=== PATIENT | male | born 1990 | race Caucasian/White ===

== ENCOUNTER → 2018-01-16 | Day surgery (SDC) | payer BC, MEDICAID ==
[2018-01-15 10:46] VITALS: BMI 40.1
[~2018-01-16] MED LIST: Fentanyl 100 MCG/2 ML VIAL ONE; Midazolam HCl 2 mg/2 ml Vial ONE
--- NOTE | 2018-01-16 13:27 | MRI ---
MRI OF THE LUMBAR SPINE WITHOUT CONTRAST: DATE: 01/16/18. COMPARISON: None. HISTORY: Back pain with paresthesias of bilateral lower extremities, pain. TECHNIQUE: Multiplanar, multisequence MR imaging of the lumbar spine obtained without contrast. FINDINGS: The sagittal STIR imaging demonstrates no focal area of osseous marrow edema. Assuming 5 lumbar-type vertebral bodies, the conus medullaris terminates at the T12-L1 level. There is no significant anterolisthesis or retrolisthesis noted within the lumbar spine. T12-L1: Intervertebral disk height and signal intensity is within normal limits with no significant central canal or neural foraminal stenosis. Mild bilateral facet hypertrophy. L1-2: Mild bilateral facet hypertrophy. Intervertebral disk height and signal intensity is within n ormal limits with no significant central canal or neural foraminal stenosis. L2-3: Mild bilateral facet hypertrophy. Intervertebral disk height and signal intensity is within n ormal limits with no significant central canal or neural foraminal stenosis. L3-4: Mild bilateral facet hypertrophy. Intervertebral disk height and signal intensity is within n ormal limits with no significant central canal or neural foraminal stenosis. L4-5: Bilateral facet hypertrophy. No significant central canal or neural foraminal stenosis. Inte rvertebral disk height and signal intensity within normal limits. L5-S1: Intervertebral disk space narrowing and desiccation noted. There is bilateral facet hypertro phy, left greater than right. No significant central canal or neural foraminal stenosis. The imaged retroperitoneal structures appear grossly unremarkable. There is mild epidural lipomatosis encircling the thecal sac at the L5 and S1 levels. IMPRESSION: Scattered degenerative changes with no severe central canal or neural foraminal stenosis. Please see above discussion. POS: [facility]
== END ==
LOC: SDC/OP 10:04 → EDSTATUS 12:00
PROVIDERS: ATTEND Neurological Surgery
DX: M54.16 Radiculopathy, lumbar region (principal)
CPT/HCPCS: 72148; J2250; J3010

== ENCOUNTER → 2018-02-06 | Outpatient (CLI) | payer BC, OTHER ==
[2018-02-06 17:06] LABS: Hemoglobin 15.7 g/dL (14.0-18.0); Mean Corpuscular HGB CONC 33.9 g/dL (32.0-36.0); Mean Corpuscular Hemoglobin 31.3 pg (27.0-31.0); Mean Corpuscular Volume 92.4 fl (80.0-94.0); Mean Platelet Volume 6.8 fL (7.4-10.4); Platelet Count 330 thou/uL (130-400); RBC Distribution Width 12.9 % (11.5-14.5); Red Blood Cell (RBC) Count 5.01 mill/uL (4.70-6.10); White Blood Cell (WBC) Count 9.2 thou/uL (4.8-10.8)
[2018-02-06 17:25] LABS: Anion Gap 13 mmol/L (10-20); BUN (Urea Nitrogen) 15 mg/dL (8.9-20.6); Calc. Creatinine Clearance 0 mL/min (70-130); Calcium 9.7 mg/dL (7.8-10.44); Carbon Dioxide 27 mmol/L (22-29); Chloride 102 mmol/L (98-107); Estimated GFR-MDRD Greater than 90; Glucose 103 mg/dL (70-105); Potassium 4.1 mmol/L (3.5-5.1); Sodium 138 mmol/L (136-145)
--- NOTE | 2018-02-09 18:20 | EKG ---
Test Reason : Blood Pressure : / mmHG Vent. Rate : 093 BPM Atrial Rate : 093 BPM P-R Int : 142 ms QRS Dur : 096 ms QT Int : 348 ms P-R-T Axes : 043 075 025 degrees QTc Int : 432 ms Poor data quality, interpretation may be adversely affected Normal sinus rhythm Normal ECG When compared with ECG of 12-DEC-2015 20:40, No significant change was found Confirmed by JENNI HUNTER, . SSuzie (4) on 02/09/2018 6:19:50 PM Referred By: GREGORIO Confirmed By:DR. Palmer ARTEAGA MD
== END ==
LOC: LABBT 16:00
PROVIDERS: ATTEND Neurological Surgery
DX: Z01.818 Encounter for other preprocedural examination (principal); M54.16 Radiculopathy, lumbar region
CPT/HCPCS: 80048; 85027; 93005; 93010

== ENCOUNTER 2018-02-09 06:58 | Day surgery (SDC) | payer BC, OTHER ==
--- NOTE | 2018-02-04 10:27 | HP ---
ATTENDING PHYSICIAN: Dr. Jung Ramirez HISTORY OF PRESENT ILLNESS: Mr. Rios is a 27-year-old male who presented to our office for progressi vely worsening back pain. He describes it as a burning, pins and needle sensation located diffusely across the low back. He denies any radicular pain, but does report occasional dysesthesias in a radi cular pattern to bilateral lower extremities. He was recently evaluated with MRI which does suggest degenerative findings at L5-S1 and severe epidural lipomatosis at L5-S1. Given the failure of other modalities and conservative care L5-S1 decompression and fusion was recommended. Dr. Ramirez discus sed risks, benefits, and alternatives with the patient and he understands and wishes to proceed. PAST MEDICAL HISTORY: Asthma, bipolar disorder, depression, restless leg syndrome, ADHD. PAST SURGICAL HISTORY: Pilonidal cyst removal in 2014. HOSPITALIZATIONS: See surgical history. ALLERGIES: The patient is allergic to ANCEF. SOCIAL HISTORY: The patient does not smoke, drink or use any drugs. CURRENT MEDICATION LIST: Vyvanse, Adderall, Xanax, Ambien, Advair, Naproxen. REVIEW OF SYSTEMS: Per HPI. PHYSICAL EXAMINATION: CONSTITUTIONAL: No acute distress. HEAD: Normocephalic, atraumatic. EYES: PERRLA. Extraocular movements intact. NECK: Nontender to palpation. Free active range of motion, no meningismus or nuchal rigidity. CARDIOVASCULAR: Regular rate and rhythm. LUNGS: The patient is breathing comfortably. No evidence of dyspnea. MUSCULOSKELETAL: Good muscle tone to bilateral upper and lower extremities, no focal motor weakness, no reflex asymmetry. LOW BACK: Tender to palpation diffusely across the lumbar spine and paraspinal musculature, pain wit h flexion and extension. ASSESSMENT: Lumbar degenerative disease, particularly at L5-S1. PLAN: L5-S1 decompression and fusion. Dr. Ramirez has discussed risks, benefits, alternatives, and the patient wishes to proceed.
[2018-02-06 16:41] VITALS: BMI 38.7
[2018-02-09] MEDS ORDERED: Ondansetron HCl/PF 4 MG/2 ML Vial ONE ×2 (07:26→15:56)
[2018-02-09] MEDS ORDERED: Levofloxacin 500 mg/D5W 100 ml Premix Bag ONE (07:43)
[2018-02-09] MEDS ORDERED: Clindamycin/D5W 900 mg/50 ml Premix Bag ONE (07:43)
[2018-02-09] MEDS ORDERED: Midazolam HCl 2 mg/2 ml Vial ONE (08:21)
[2018-02-09] MEDS ORDERED: Sodium Chloride 0.9% 10 ML ONE (08:45)
[2018-02-09] MEDS ORDERED: Famotidine/PF 20 mg/2ml Vial ONE (08:52)
[2018-02-09] MEDS ORDERED: Fentanyl 250 MCG/5 ML VIAL ONE (08:52)
[2018-02-09] MEDS ORDERED: Ketorolac Tromethamine 30 MG/ML VIAL ONE ×2 (10:59→15:56)
[2018-02-09] MEDS ORDERED: Fentanyl 100 MCG/2 ML VIAL ONE (11:07)
--- NOTE | 2018-02-09 11:38 | OP ---
DATE OF OPERATION: 02/09/2018 SURGEON: Jugn Ramirez M.D. SIGNAL CIRCUIT DESIGNER: EDUARDO Champagne. PROCEDURE PERFORMED: L5-S1 laminectomy, posterolateral arthrodesis L5-S1, demineralized bone matrix, local morselized autograft. PROCEDURE IN DETAIL: The patient was brought to the operating room and intubated. He was rolled in the prone position on gel-filled chest rolls. It was immediately evident the patient had extensive s cabbing and boils throughout the visualized skin which was a new finding. After prepping and draping , an incision was made and we exposed L5 and S1 bilaterally. We performed a complete L5 and superior S1 laminectomy and debrided the extensive and dramatic epidural lipomatosis. A complete decompressi on was achieved. The disk space at L5-S1 was explored and the disk itself was largely calcified and very little viable disk material was present. Whenever it was present was removed. At this point, g enma the substantial autofusion had occurred across the disk space as well as my concern about implan dedra instrumentation given the cutaneous findings, we performed an onlay fusion without instrumentatio n using demineralized bone matrix and local morselized autograft after appropriately preparing the la minar and posterolateral surfaces at L5-S1. Next was the wound was extensively irrigated, immaculate hemostasis was secured. Vancomycin powder was applied and the wound was closed in anatomic layers.
[2018-02-09] MEDS ORDERED: Dexamethasone 20 MG/5 ML VIAL ONE (15:56)
[2018-02-09] MEDS ORDERED: Glycopyrrolate 0.2 MG/ML 5 ML SYRINGE ONE (15:56)
[2018-02-09] MEDS ORDERED: PROPOFOL 200 MG/20 ML VIAL ONE (15:56)
[2018-02-09] MEDS ORDERED: Lidocaine 1% PF 5 ML VIAL ONE (15:56)
== END 2018-02-09 13:45 | disposition home or self-care (01) ==
LOC: SDC 06:58
PROVIDERS: ATTEND Neurological Surgery
PROC: 0SG3071 Fusion of Lumbosacral Joint with Autologous Tissue Substitute, Posterior Approach, Posterior Column, Open Approach (ICD-10-PCS; principal; 2018-02-09)
DX: M54.16 Radiculopathy, lumbar region (principal); E88.2 Lipomatosis, not elsewhere classified; J45.909 Unspecified asthma, uncomplicated; F31.9 Bipolar disorder, unspecified; G25.81 Restless legs syndrome; F90.9 Attention-deficit hyperactivity disorder, unspecified type; Z79.2 Long term (current) use of antibiotics; Z79.899 Other long term (current) drug therapy; Z88.1 Allergy status to other antibiotic agents
CPT/HCPCS: 76001; 96374; A4216; C1768; J1100; J1885; J1956; J2001; J2250; J2405; J2704; J3010; J3370; J3490; S0028

== ENCOUNTER 2018-02-24 15:51 | Outpatient (CLI) | payer BC, OTHER ==
--- NOTE | 2018-02-24 16:17 | RAD ---
TWO VIEWS OF THE LUMBOSACRAL SPINE: 02/24/18 COMPARISON: None. HISTORY: Back surgery two weeks ago with low back pain. FINDINGS: two views of the lumbosacral spine shows normal height and alignment and of the vertebral bodies and intervertebral discs without fracture or subluxation. No significant degenerative changes are seen. IMPRESSION: Unremarkable exam. POS: [facility]
== END 2018-02-24 15:52 | disposition home or self-care (01) ==
LOC: TBSIIMAG 15:51
PROVIDERS: ATTEND Neurological Surgery
DX: M54.5 Low back pain (principal)
CPT/HCPCS: 72100

== ENCOUNTER 2018-06-23 15:57 | Outpatient (CLI) | payer BC, OTHER ==
--- NOTE | 2018-06-23 16:44 | RAD ---
LUMBAR SPINE TWO VIEWS: 06/23/18 HISTORY: Lumbar radiculopathy. Status post surgery followup at five months. COMPARISON: 02/24/18 FINDINGS: Five lumbar type vertebral bodies. There is 6 mm of anterolisthesis of L5 upon S1, unchanged. Preserv ation of vertebral body height. No definite fracture. IMPRESSION: Unremarkable two views lumbar spine. No significant change. POS: [facility]
== END 2018-06-23 15:58 | disposition home or self-care (01) ==
LOC: TBSIIMAG 15:57
PROVIDERS: ATTEND Neurological Surgery
DX: M54.16 Radiculopathy, lumbar region (principal)
CPT/HCPCS: 72100